=== PATIENT | male | born 1965 | race Caucasian/White ===

== ENCOUNTER 2017-07-25 19:41 | Emergency (ER) | payer OTHER ==
[~2017-07-25] VITALS: Ht 185.4 cm; Wt 109.1 kg
[2017-07-25] MEDS ORDERED: NORCO 325 MG-51 TA1 PO (20:41)
[2017-07-25 21:18] VITALS: BP 129/82
== END 2017-07-25 20:55 | disposition home or self-care (01) ==
LOC: ED 19:41
DX: H60.93 Unspecified otitis externa, bilateral (principal); F17.200 Nicotine dependence, unspecified, uncomplicated
CPT/HCPCS: J1885

== ENCOUNTER 2017-08-01 04:27 | Emergency (ER) | payer OTHER ==
[~2017-08-01] VITALS: Ht 185.4 cm; Wt 106.8 kg
[~2017-08-01 04:27] MED LIST: NORCO 325 MG-51 TA1 PO
[2017-08-01 06:38] VITALS: BP 136/105
== END 2017-08-01 06:38 | disposition home or self-care (01) ==
LOC: ED 04:27
DX: H60.91 Unspecified otitis externa, right ear (principal); F17.210 Nicotine dependence, cigarettes, uncomplicated
CPT/HCPCS: J1885

== ENCOUNTER 2018-10-19 08:00 | Outpatient (RCR) | payer OTHER | END 2018-10-19 08:30 | disposition still patient (30) | LOC: PT 08:00 | DX: M25.561 Pain in right knee (principal); Z98.890 Other specified postprocedural states ==

== ENCOUNTER 2019-07-21 19:06 | Emergency (ER) | payer BC ==
[~2019-07-21] VITALS: Ht 182.9 cm; Wt 111.4 kg
[2019-07-21] MEDS ORDERED: AMOXICILLIN 50500 MG PO (19:42)
[2019-07-21] MEDS ORDERED: KETOROLAC10 MG PO (19:42)
[2019-07-21 19:55] VITALS: BP 165/78
== END 2019-07-21 19:55 | disposition home or self-care (01) ==
LOC: ED 19:06
DX: K05.10 Chronic gingivitis, plaque induced (principal); K08.89 Other specified disorders of teeth and supporting structures; F17.210 Nicotine dependence, cigarettes, uncomplicated
CPT/HCPCS: J1885

== ENCOUNTER → 2020-05-01 | Outpatient (CLI) | payer BC ==
[~2020-05-01] MED LIST changes: +AMOXICILLIN 50500 MG PO; +KETOROLAC10 MG PO
== END ==
LOC: LAB 04-24 09:35
DX: Z20.828 Contact with and (suspected) exposure to other viral communicable diseases (principal)

== ENCOUNTER → 2020-05-06 | Day surgery (SDC) | payer BC | LOC: MSO | DX: Z12.11 Encounter for screening for malignant neoplasm of colon (principal); D12.5 Benign neoplasm of sigmoid colon; Z87.891 Personal history of nicotine dependence; I10 Essential (primary) hypertension | CPT/HCPCS: 00811; J2704; J7120 ==

== ENCOUNTER 2020-06-15 10:00 | Emergency (ER) | payer BC ==
[~2020-06-15] VITALS: Ht 185.4 cm; Wt 109.1 kg
[2020-06-15 11:01] LABS: EOS # 0.1 (0.04-0.40); EOS % 2.6 % (0.0-4.0); HEMATOCRIT 44.4 % (42.0-52.0); HEMOGLOBIN 15.2 g/dL (13.5-18.0); LYMPH# 1.4 (1.50-4.00); MEAN CELL VOLUME 86 fl (78-100); MEAN CORPUSCULAR HEMOGLOBIN 30 pg (27-31); MEAN CORPUSCULAR HGB CONC 34 g/dL (33-37); MEAN PLATELET VOLUME 10.4 fl (7.4-10.4); MONO # 0.3 (0.20-0.80); NEU # 2.7 (1.40-6.50); PLATELET COUNT 171 K/mm3 (130-400); RED BLOOD COUNT 5.16 M/mm3 (4.20-5.60); RED CELL DISTRIBUTION WIDTH 12.8 % (11.5-14.5); WHITE BLOOD COUNT 4.7 K/mm3 (4.8-10.8)
[2020-06-15] MEDS ORDERED: KETOROLAC10 MG PO (11:11)
[2020-06-15 11:15] VITALS: BP 135/91
== END 2020-06-15 11:15 | disposition home or self-care (01) ==
LOC: ED 10:00
PROVIDERS: Family Medicine
DX: K40.90 Unilateral inguinal hernia, without obstruction or gangrene, not specified as recurrent (principal); Z90.49 Acquired absence of other specified parts of digestive tract; Z88.5 Allergy status to narcotic agent; Z88.6 Allergy status to analgesic agent
CPT/HCPCS: J1885

== ENCOUNTER → 2021-05-17 | Outpatient (CLI) | payer BC | LOC: LAB 13:01 | DX: Z20.822 Contact with and (suspected) exposure to COVID-19 (principal) ==